=== PATIENT | male | born 1980 | race African-American/Black ===

== ENCOUNTER 2024-09-15 13:28 | Emergency (ER) | payer BC ==
[~2024-09-15] VITALS: Ht 177.8 cm; Wt 91.0 kg
[2024-09-15 13:34] VITALS: O2SAT 98
[2024-09-15 13:36] VITALS: BP 148/92; PULSE 74; RESP 18; TEMP 37.1; O2SAT 95
[2024-09-15] MEDS ORDERED: HYDROMORPHONE HCL/PF 2MG/ML INJ IV ONE (14:00)
[2024-09-15] MEDS: SODIUM CHLORIDE 0.9% 1,000 ML IV ONE (15:41)
[2024-09-15] MEDS: KETOROLAC 30MG/ML VIAL IV ONE (15:41)
[2024-09-15] MEDS: HYDROMORPHONE HCL/PF 1MG/ML INJ IV SCH (15:52)
[2024-09-15 16:51] LABS: CHLORIDE 103 mEq/L (98-107); POTASSIUM 3.5 mEq/L (3.5-5.1); SODIUM 140 mEq/L (136-145)
[2024-09-15 16:52] LABS: CARBON DIOXIDE 30 mEq/L (21-32)
[2024-09-15 16:53] LABS: CALCIUM 9.7 mg/dL (8.7-10.4)
[2024-09-15 16:58] LABS: CREATININE 0.8 mg/dL (0.6-1.3); GLUCOSE 74 mg/dL (70-105); UREA NITROGEN BLOOD 10 mg/dL (9-23)
[2024-09-15 17:01] LABS: BASOPHILS % 1.2 % (0.0-2.0); EOSINOPHILS % 2.1 % (0.0-5.0); HEMATOCRIT. 33.9 % (42.0-52.0); HEMOGLOBIN. 11.6 g/dL (14.0-18.0); LYMPHOCYTES % 37.8 % (20.0-50.0); MEAN CORPUSCULAR HEMOGLOBIN 32.8 pg (28.0-32.0); MEAN CORPUSCULAR HGB CONC 34.2 g/dL (31.0-37.0); MEAN PLATELET VOLUME 9.4 fl (7.4-10.4); MONOCYTES % 7.4 % (2.0-8.0); NEUTROPHILS % 51.5 % (40.0-76.0); PLATELET 344 x1000/uL (130-400); RED BLOOD CELL COUNT 3.53 mill/uL (4.7-6.1); RED CELL DISTRIBUTION WIDTH 17.9 % (11.6-14.6)
[2024-09-15 17:03] LABS: DIFFERENTIAL COMMENT 1
[2024-09-15] MEDS ORDERED: IBUP-2030 MT (17:07)
== END 2024-09-15 17:29 | disposition home or self-care (01) ==
LOC: ER 13:28
DX: D57.00 Hb-SS disease with crisis, unspecified (principal); Z98.890 Other specified postprocedural states
CPT/HCPCS: 80048; 85025; 85044; 86850; 86900; 86901; 36415; 71045; 93005; 96361; 96374; 96375; 99285; J1885; J1171; J7030; Z7610 ×2

== ENCOUNTER 2024-09-18 19:39 | Emergency (ER) | payer BC ==
[~2024-09-18] VITALS: Ht 177.8 cm; Wt 91.0 kg
[~2024-09-18 19:39] MED LIST: IBUP-2030 MT
[2024-09-18 19:46] VITALS: O2SAT 97
[2024-09-18 19:52] VITALS: TEMP 36.7; O2SAT 100
[2024-09-18 20:24] VITALS: BP 140/69; PULSE 84; RESP 18
[2024-09-18] MEDS: KETOROLAC 15MG/ML VIAL IM ONE (20:24)
[2024-09-18 21:37] LABS: HEMATOCRIT. 30.7 % (42.0-52.0); HEMOGLOBIN. 10.8 g/dL (14.0-18.0); MEAN CORPUSCULAR HEMOGLOBIN 33.4 pg (28.0-32.0); MEAN CORPUSCULAR HGB CONC 35.2 g/dL (31.0-37.0); MEAN CORPUSCULAR VOLUME 94.8 fL (80.0-94.0); MEAN PLATELET VOLUME 9.4 fl (7.4-10.4); PLATELET 295 x1000/uL (130-400); RED BLOOD CELL COUNT 3.23 mill/uL (4.7-6.1); RED CELL DISTRIBUTION WIDTH 17.8 % (11.6-14.6); WHITE BLOOD COUNT 12.7 x1000/uL (4.5-11.0)
[2024-09-18 21:38] LABS: DIFFERENTIAL COMMENT 1
[2024-09-18 21:41] LABS: CHLORIDE 108 mEq/L (98-107); POTASSIUM 4.1 mEq/L (3.5-5.1); SODIUM 143 mEq/L (136-145)
[2024-09-18 21:42] LABS: CALCIUM 9.2 mg/dL (8.7-10.4); CARBON DIOXIDE 32 mEq/L (21-32)
[2024-09-18 21:47] LABS: CREATININE 0.8 mg/dL (0.6-1.3); GLUCOSE 90 mg/dL (70-105); UREA NITROGEN BLOOD 8 mg/dL (9-23)
[2024-09-18 22:21] LABS: NUCLEATED RED BLOOD CELLS 6 /100 WBC
[2024-09-18 22:22] LABS: PLATELET ESTIMATE NORMAL
== END 2024-09-18 23:02 | disposition home or self-care (01) ==
LOC: ER 19:39
DX: D57.00 Hb-SS disease with crisis, unspecified (principal)
CPT/HCPCS: 99284; 71045; 80048; 85025; 85044; 36415; 96372; J1885